=== PATIENT | female | born 1995 | race Caucasian/White ===

== ENCOUNTER 2017-12-23 01:53 | Emergency (ER) | payer OTHER ==
[~2017-12-23] VITALS: Ht 170.2 cm; Wt 65.8 kg
[2017-12-23 02:50] VITALS: BP 116/80
[2017-12-23] MEDS ORDERED: IBUPROFEN 600 MG TABLET PO ONE ×2 (02:57→03:00)
== END 2017-12-23 03:12 | disposition home or self-care (01) ==
LOC: ER 02:01
DX: S20.211A Contusion of right front wall of thorax, initial encounter (principal); S30.1XXA Contusion of abdominal wall, initial encounter; V43.62XA Car passenger injured in collision with other type car in traffic accident, initial encounter; Y93.89 Activity, other specified; Y92.413 State road as the place of occurrence of the external cause; Y99.8 Other external cause status
CPT/HCPCS: 99282; A4606